=== PATIENT | female | born 1990 | race African-American/Black ===

== ENCOUNTER 2024-07-22 10:17 | Inpatient (IN) | payer MEDICAID ==
[2024-07-22 10:43] VITALS: BMI 50.4
[2024-07-22] MEDS ORDERED: hydrALAZINE 20 MG/ML VIAL SLOW IVP PRN (10:54)
[2024-07-22 11:41] LABS: Hematocrit 34.4 % (34.9-44.5); Hemoglobin 11.2 g/dL (12.0-15.5); Mean Corpuscular HGB CONC 32.6 g/dL (32.0-36.0); Mean Corpuscular Hemoglobin 29.9 pg (27.0-33.0); Platelet Count 163 10x3/uL (150-450); RBC Distribution Width 14.1 % (11.5-14.5); Red Blood Cell (RBC) Count 3.74 10x6/uL (3.90-5.03); White Blood Cell (WBC) Count 8.1 10x3/uL (3.5-10.5)
[2024-07-22 12:14] LABS: HBsAg Index 0.23 S/CO (0-0.99); Hep B Surf Ag - L&D Non-Reactive S/CO (NonReactive)
[2024-07-22 12:15] LABS: Syphilis Antibody Nonreactive (Nonreactive); Syphilis Antibody Index 0.11 S/CO (<1.00 Non-Reactive)
[2024-07-22 13:15] LABS: PTT 27.8 sec (22.0-33.0); Prothrombin Time 10.5 sec (9.5-12.1)
[2024-07-22] MEDS: Terbutaline Sulfate 1 MG/ML VIAL SC SCH (13:19)
[2024-07-22] MEDS: Mineral Oil ENEMA PR SCH (13:19)
[2024-07-22] MEDS ORDERED: Methylergonovine 0.2 MG/ML VIAL IM PRN (16:52)
[2024-07-22] MEDS ORDERED: Promethazine HCl 25 MG/ML VIAL IM PRN (16:52)
[2024-07-22] MEDS ORDERED: Lidocaine 1% (PF) 30 ML VIAL SC PRN (16:52)
[2024-07-22] MEDS ORDERED: Ibuprofen 800 MG TAB PO PRN (16:52)
[2024-07-22] MEDS ORDERED: Misoprostol 200 MCG TAB PR PRN (16:52)
[2024-07-22] MEDS ORDERED: Ondansetron PF 4 MG/2 ML Vial IVP PRN (16:52)
[2024-07-22] MEDS ORDERED: Tranexamic Acid 1,000 MG/10 ML VIAL IVP PRN (16:52)
[2024-07-22] MEDS ORDERED: Carboprost 250 MCG/ML AMP IM PRN (16:52)
[2024-07-22] MEDS ORDERED: Misoprostol 100 MCG TAB VAG SCH (17:00)
[2024-07-22] MEDS ORDERED: Penicillin G Potassium 5 MILL.UNITS in Sodium Chloride 0.9% 100 ML IVPB SCH (17:00)
[2024-07-22] MEDS ORDERED: Lactated Ringer's 1,000 ML IV SCH (17:00)
[2024-07-22] MEDS: Penicillin G 2.5 MILL.units 2.5 MILL.UNITS in Premix 1 BAG IVPB SCH (21:23)
[2024-07-22] MEDS: Oxytocin 30 units/NS 500 ML 500 ML IV SCH (21:52)
[2024-07-22] MEDS ORDERED: Calcium Carbonate 500 MG ChewTAB PO PRN (23:09)
[2024-07-23] MEDS ORDERED: Famotidine/PF 20 mg/2ml Vial SLOW IVP PRN (03:05)
[2024-07-23] MEDS ORDERED: Bicitra 30 ML UDCUP PO PRN (03:05)
[2024-07-23] MEDS ORDERED: CEFAZOLIN 2 GM in Sodium Chloride 0.9% 100 ML IVPB SCH (03:15)
[2024-07-23] MEDS ORDERED: Azithromycin 500 MG in Sodium Chloride 0.9% 250 ML 250 ML IVPB SCH (03:15)
[2024-07-23 04:09] LABS: Analyzer IN Cardio CS NICU; RapidComm Collect By RN; pH (Cord, venous) 7.317 (7.250-7.350)
[2024-07-23] MEDS ORDERED: Meperidine HCl/PF 25 MG (1 mL) VIAL SLOW IVP PRN (04:52)
[2024-07-23] MEDS ORDERED: Naloxone HCl 0.4 mg/ml Vial IV PRN (04:52)
[2024-07-23] MEDS ORDERED: diphenhydrAMINE 50 MG/ML VIAL IVP PRN (04:52)
[2024-07-23] MEDS ORDERED: Moisturizing Cream (Eucerin) 113 GM JAR TOP PRN (04:52)
[2024-07-23] MEDS ORDERED: Ondansetron PF 4 MG/2 ML Vial IVP PRN (04:52)
[2024-07-23] MEDS ORDERED: Naloxone HCl 0.4 mg/ml Vial IVP PRN ×2 (04:52)
[2024-07-23] MEDS ORDERED: fentaNYL 50 mcg/mL 1 mL Vial SLOW IVP PRN (04:52)
[2024-07-23] MEDS ORDERED: Communication Order-Pharmacy FS SCH (05:00)
[2024-07-23] MEDS: Ondansetron PF 4 MG/2 ML Vial IVP PRN ×2 (05:39→11:53)
[2024-07-23] MEDS: Ketorolac Tromethamine 30 MG (1 mL) VIAL IVP SCH (05:44)
[2024-07-23] MEDS ORDERED: Ketorolac Tromethamine 30 MG (1 mL) VIAL IVP SCH (05:45)
[2024-07-23] MEDS ORDERED: hydrALAZINE 20 MG/ML VIAL SLOW IVP PRN (08:17)
[2024-07-23] MEDS ORDERED: Acetaminophen 325 MG TAB PO PRN (08:17)
[2024-07-23] MEDS ORDERED: Boostrix 0.5 ML (Tdap) VIAL (>/=7 yrs of age) IM ONE (08:17)
[2024-07-23] MEDS ORDERED: Lanolin Ointment 7 GM TUBE TOP PRN (08:17)
[2024-07-23] MEDS ORDERED: Simethicone Chewable 80 MG TAB PO PRN (08:17)
[2024-07-23] MEDS: Azithromycin 500 MG VIAL ONE (09:17)
[2024-07-23] MEDS: Hepatitis B Vaccine 10 MCG/0.5 ML SYR ONE (09:17)
[2024-07-23] MEDS: Erythromycin Base 0.5% Oint 1 GM TUBE ONE (09:17)
[2024-07-23] MEDS: Dexamethasone 10 MG/ML VIAL ONE (09:17)
[2024-07-23] MEDS: CEFAZOLIN 2 GM VIAL ONE ×2 (09:17)
[2024-07-23] MEDS: Phytonadione Neonatal 1 MG/0.5 ML AMP ONE (09:17)
[2024-07-23] MEDS: Ondansetron PF 4 MG/2 ML Vial ONE (09:18)
[2024-07-23] MEDS: Morphine PF 10 MG/10 ML VIAL ONE (09:18)
[2024-07-23] MEDS: Oxytocin 10 UNITS/ML VIAL ONE (09:18)
[2024-07-23] MEDS: PHENYLEPHRINE-NS 100 MCG/ML 10 ML SYRINGE ONE ×2 (09:19)
[2024-07-23] MEDS: Prenatal Vitamin 1 TAB PO SCH (09:20)
[2024-07-23] MEDS: Docusate 100 MG CAP PO SCH (09:20)
[2024-07-23] MEDS: Ferrous Sulfate 325 MG TAB PO SCH (09:20)
[2024-07-23] MEDS: Enoxaparin 40 MG (0.4 mL) SYRINGE SC SCH ×2 (09:44→16:06)
[2024-07-23] MEDS: Promethazine HCl 25 MG/ML VIAL IM PRN (09:54)
[2024-07-23] MEDS: Ketorolac Tromethamine 30 MG (1 mL) VIAL IVP PRN (11:50)
[2024-07-23] MEDS ORDERED: HYDROcodone/Acetaminophen 5/325 mg Tablet PO PRN (17:00)
[2024-07-24] MEDS: HYDROcodone/Acetaminophen 5/325 mg Tablet PO PRN (01:55)
[2024-07-24 03:48] LABS: Hematocrit 26.9 % (34.9-44.5); Hemoglobin 8.8 g/dL (12.0-15.5); Mean Corpuscular HGB CONC 32.7 g/dL (32.0-36.0); Mean Corpuscular Hemoglobin 30.4 pg (27.0-33.0); Mean Corpuscular Volume 93.1 fL (81.6-98.3); Mean Platelet Volume 11.9 fL (7.4-10.4); Platelet Count 167 10x3/uL (150-450); RBC Distribution Width 14.4 % (11.5-14.5); Red Blood Cell (RBC) Count 2.89 10x6/uL (3.90-5.03); White Blood Cell (WBC) Count 13.4 10x3/uL (3.5-10.5)
[2024-07-24] MEDS: diphenhydrAMINE 25 MG CAP PO PRN (04:49)
[2024-07-24] MEDS: Ibuprofen 800 MG TAB PO SCH (04:57)
[2024-07-24] MEDS: Enoxaparin 40 MG (0.4 mL) SYRINGE SC SCH (08:07)
[2024-07-25] MEDS: Calcium Carbonate 500 MG ChewTAB PO SCH ×3 (04:09→08:52)
[2024-07-25 07:24] VITALS: BP 117/60; TEMP 98.4
== END 2024-07-25 14:45 | disposition home or self-care (01) | DRG 787 ==
LOC: CSHLD 10:17 → OBSVTOIN 16:52 → CSHLD 07-23 04:36 → CSHPP 07-23 08:30
PROVIDERS: ADMIT Student in an Organized Health Care Education/Training Program; ATTEND Student in an Organized Health Care Education/Training Program
PROC: 10907ZC Drainage of Amniotic Fluid, Therapeutic from Products of Conception, Via Natural or Artificial Opening (ICD-10-PCS; 2024-07-22)
PROC: 10H07YZ Insertion of Other Device into Products of Conception, Via Natural or Artificial Opening (ICD-10-PCS; 2024-07-22)
PROC: 10D00Z1 Extraction of Products of Conception, Low, Open Approach (ICD-10-PCS; principal; 2024-07-23)
DX: O32.1XX0 Maternal care for breech presentation, not applicable or unspecified (principal); D68.61 Antiphospholipid syndrome; O99.12 Other diseases of the blood and blood-forming organs and certain disorders involving the immune mechanism complicating childbirth; Z3A.38 38 weeks gestation of pregnancy; Z37.0 Single live birth; O99.824 Streptococcus B carrier state complicating childbirth; O76 Abnormality in fetal heart rate and rhythm complicating labor and delivery; O99.02 Anemia complicating childbirth; O09.523 Supervision of elderly multigravida, third trimester
CPT/HCPCS: 36415; 51702; 59412; 82805; 85027; 85610; 85730; 86780; 86850; 86900; 86901; 87340; J1100; J1650; J1885; J2274; J2405; J2540; J2550; J2590; J3105